=== PATIENT | male | born 1955 | race Caucasian/White ===

== ENCOUNTER 2016-03-23 09:46 | Emergency (ER) | payer OTHER ==
--- NOTE | 2016-03-23 10:16 | ERPHSYRPT ---
- History of Present Illness Time Seen by Provider: 03/23/16 10:07 Source: patient Exam Limitations: no limitations Patient Subjective Stated Complaint: dizziness and cough Triage Nursing Assessment: upper resp for days. had a loose stool this morning and had an episode during a bm where he got diaphoretic and dizziness and low bp. on arrival, pt states 'i feel back to normal' noted congestion and dry cough. denies pain or injury. had delsym for the first time last night and again this morning. Physician History: The patient is a 60-year-old male with his complaining of a cough for 5 days. He is been on a diet for 3 weeks has lost 10 pounds. Today at work he had a sudden onset of loose stools. He went home and during another bowel movement he became pale lightheaded and sweaty. Blood pressure at home was 90/ 50. He now feels fine. He would like to have an antibiotic for his cough. Timing/Duration: day(s) (5) Cough Quality/Degree: severe Possible Cause: no prior episodes Modifying Factors: Improves With: activity Associated Symptoms: cough, earache Allergies/Adverse Reactions: No Known Drug Allergies Allergy (Unverified 03/23/16 10:00) Home Medications: Aspirin 81 mg PO DAILY 03/23/16 [History] Enalapril Maleate 10 mg [Vasotec 10 MG] 10 mg PO DAILY 03/23/16 [History] Multivit-Min/FA/Lycopen/Lutein [Centrum Silver Men Tablet] 1 each PO DAILY 03/23 [History] [place]-3 Fatty Acids/Fish Oil [Fish Oil 1,000 mg Softgel] 1 each PO DAILY [History] Hx Tetanus, Diphtheria Vaccination/Date Given: Yes Hx Influenza Vaccination/Date Given: No Hx Pneumococcal Vaccination/Date Given: No Immunizations Up to Date: Yes - Review of Systems Constitutional: No Fever, No Chills Eyes: No Symptoms Ears, Nose, & Throat: Ear Pain, Nose Discharge Respiratory: Cough Cardiac: No Symptoms Abdominal/Gastrointestinal: Diarrhea Genitourinary Symptoms: No Dysuria Musculoskeletal: No Back Pain, No Neck Pain Skin: No Rash Neurological: No Dizziness, No Focal Weakness, No Sensory Changes Psychological: No Symptoms Endocrine: No Symptoms Hematologic/Lymphatic: No Symptoms Immunological/Allergic: No Symptoms All Other Systems: Reviewed and Negative - Past Medical History Pertinent Past Medical History: Yes Cardiac History: Hypertension Musculoskeletal History: No Pertinent History GI Medical History: No Pertinent History History: No Pertinent History Psycho-Social History: No Pertinent History Male Reproductive Disorders: No Pertinent History - Past Surgical History Past Surgical History: No - Social History Smoking Status: Never smoker Exposure to second hand smoke: No Drug Use: none Patient Lives Alone: No - Nursing Vital Signs Nursing Vital Signs: Initial Vital Signs Temperature 97.4 F Temperature Source Oral Pulse Rate 72 Respiratory Rate 18 Blood Pressure 106/68 Pain Intensity 0 - Physical Exam General Appearance: no apparent distress, alert Eye Exam: PERRL/EOMI, eyes nml inspection Ears, Nose, Throat Exam: normal ENT inspection, TMs normal, pharynx normal, moist mucous membranes Neck Exam: normal inspection, non-tender, supple, full range of motion Respiratory Exam: rhonchi Cardiovascular Exam: regular rate/rhythm, normal heart sounds Gastrointestinal/Abdomen Exam: soft, No tenderness Rectal Exam: not done Back Exam: normal inspection, No CVA tenderness, No vertebral tenderness Extremity Exam: normal inspection, normal range of motion Neurologic Exam: alert, oriented x 3, cooperative, normal mood/affect, sensation nml, No motor deficits Skin Exam: normal color, warm, dry, No rash Lymphatic Exam: No adenopathy SpO2 Interpretation: normal SpO2: 93 Oxygen Delivery: Room Air - Radiology Exams Chest X-ray Interpretation: Teleradiologist Report, Infiltrates (right base) Ordered Tests: Active Orders 24 hr Category Date Time Status Partner Integration Planner STAT Care 03/23/16 10:20 Active IV Insertion STAT Care 03/23/16 10:20 Active Orthostatic Vital Signs STAT Care 03/23/16 10:08 Active Regular Diet Diet 03/23/16 Dinner Active CHEST 2 VIEWS (PA AND LAT) Stat Exams 03/23/16 10:20 Completed BMP Stat Lab 03/23/16 10:30 Completed CBC W DIFF Stat Lab 03/23/16 10:30 Completed Manual Differential NC Stat Lab 03/23/16 10:30 Completed Medication Summary Discontinued Medications Generic Name Dose Route Start Last Admin Trade Name Freq PRN Reason Stop Dose Admin Ceftriaxone Sodium/Dextrose 50 mls @ 100 mls/hr 03/23/16 11:15 03/23/16 11:34 Rocephin 1 Gm-D5w 50 Ml Bag IV 03/23/16 11:44 100 mls/hr STAT ONE Administration Ceftriaxone Sodium/Dextrose Confirm 03/23/16 11:30 Rocephin 1 Gm-D5w 50 Ml Bag Administered 03/23/16 11:31 Dose 50 mls @ ud IV .STK-MED ONE Lab/Rad Data: Laboratory Result Diagrams 03/23/16 10:30 03/23/16 10:30 Laboratory Results 03/23/16 03/23/16 Range/Units 10:30 10:30 WBC 10.4 (4.0-10.5) K/mm3 RBC 5.18 (4.1-5.6) M/mm3 Hgb 16.3 (12.5-18.0) gm/dl Hct 49.9 (42-50) % MCV 96.3 (78-100) fl MCH 31.5 (26-32) pg MCHC 32.7 (32-36) g/dl RDW 13.0 (11.5-14.0) % Plt Count 239 (150-450) K/mm3 MPV 10.1 H (6-9.5) fl Segmented Neutrophils 83 H (36.-66.) % Lymphocytes (Manual) 10 L (24-44) % Monocytes (Manual) 5 (0.0-12.0) % Eosinophils (Manual) 2 (0.00-3.0) % Differential Comment NORMAL Platelet Estimate NORMAL (NORMAL) Sodium 139 (136-145) mEq/L Potassium 4.3 (3.5-5.1) mEq/L Chloride 102 (98-107) mEq/L Carbon Dioxide 32.0 (21-32) mEq/L Anion Gap 8.8 (5-15) MEQ/L BUN 13 (9-20) mg/dL Creatinine 0.95 (0.55-1.30) mg/dl Estimated GFR > 60 ML/MIN Glucose 151 H (70-110) MG/DL Calcium 9.3 (8.5-10.1) mg/dL - Progress Progress: unchanged Air Movement: good Blood Culture(s) Obtained: No Antibiotics given: Yes - Departure Time of Disposition: 12:28 Departure Disposition: Home Clinical Impression: Bronchitis, Infiltrate noted on imaging study Condition: Stable Critical Care Time: No Additional Instructions: Stay well hydrated. Tylenol and Ibuprofen as needed. Take the z davion as directed. Follow up as needed. Prescriptions: Azithromycin [Azithromycin 250 mg Pack] 250 mg PO UD #6 tablet
[2016-03-23 10:44] LABS: Mean Cell Volume 96.3 fl (78-100); Mean Corpuscular Hemoglobin 31.5 pg (26-32); Mean Platelet Volume 10.1 fl (6-9.5); Platelet Count 239 K/mm3 (150-450); Red Blood Count 5.18 M/mm3 (4.1-5.6); White Blood Count 10.4 K/mm3 (4.0-10.5)
--- NOTE | 2016-03-23 10:59 | XRAY ---
Indication: Cough. Comparison: October 07, 2006 PA/lateral chest now demonstrates subtle right base infiltrate versus atelectasis. No consolidation or large effusion. Left lung clear. Heart is not enlarged. Vascularity normal. Bony thorax intact. Impression: New right base infiltrate/atelectasis. Correlate clinically.
[2016-03-23 11:06] LABS: ANION GAP 8.8 MEQ/L (5-15); BLOOD UREA NITROGEN 13 mg/dL (9-20); CHLORIDE 102 mEq/L (98-107); Glucose 151 MG/DL (70-110); Potassium 4.3 mEq/L (3.5-5.1); SODIUM 139 mEq/L (136-145)
[2016-03-23] MEDS ORDERED: ROCEPHIN 1 Gm-D5w 50 ml Bag** 50 ML IV ONE ×2 (11:15→11:30)
[2016-03-23 11:38] LABS: Eosinophil 2 % (0.00-3.0); Platelet Estimate NORMAL (NORMAL); Total Cells Counted 100
[2016-03-23 12:40] VITALS: BP 112/60; PULSE 83; O2SAT 95
== END 2016-03-23 12:41 | disposition home or self-care (01) ==
LOC: ED 09:46
DX: J40 Bronchitis, not specified as acute or chronic (principal); R91.8 Other nonspecific abnormal finding of lung field; R42 Dizziness and giddiness; R05 Cough; H92.09 Otalgia, unspecified ear; I10 Essential (primary) hypertension; Z79.82 Long term (current) use of aspirin; Z79.899 Other long term (current) drug therapy
CPT/HCPCS: 36000; 36415; 71020; 80048; 85025; 93041; 96365; 99283; J0696

== ENCOUNTER 2023-07-03 17:18 | Emergency (ER) | payer MEDICARE ==
[2023-07-03 17:29] VITALS: TEMP 98
--- NOTE | 2023-07-03 17:33 | ERPHSYRPT ---
- History of Present Illness Time Seen by Provider: 07/03/23 17:33 Historian: patient Exam Limitations: no limitations Patient Subjective Stated Complaint: C/O chest pain that started while watching T.V. approx 30 minutes prior to coming into the ER Triage Nursing Assessment: Patient ambulated back to ER. He is alert and oriented. No SOB. Skin tone normal. DURAN WNL. Slight edema BLE. Physician History: This is a morbidly obese white male patient of Dr. Llamas who presents to the emergency department with mild (2 out of 10) intermittent, nonradiating substernal central chest pain that he described as an ache that occurred approximately 30 minutes prior to arrival while watching TV. Patient work today and came home and ate a sandwich and then ate chips. He noticed the above- stated symptoms. Although intermittent, the had not gone away and were noticeable and therefore he came to the emergency department for evaluation. Patient does have a history of asthma/COPD, hyperlipidemia, hypertension, morbid obesity and hypothyroidism. He has never been diagnosed with coronary artery disease. Timing/Duration: today Activities at Onset: none Quality: aching Location: substernal, central Chest Pain Radiation: no radiation Severity of Pain-Max: mild Severity of Pain-Current: mild Modifying Factors: Improves With: nothing Associated Symptoms: denies symptoms Prior Chest Pain/Cardiac Workup: no prior chest pain, no prior cardiac workup Nitro Today/Relief: no nitro taken today Aspirin Treatment Today: provided at home Allergies/Adverse Reactions: No Known Drug Allergies Allergy (Verified 07/03/23 17:21) Home Medications: Aspirin 81 mg PO DAILY 03/23/16 [History] Enalapril Maleate 10 mg [Vasotec 10 MG] 20 mg PO DAILY 03/23/16 [History] Mv-Min/Folic/K1/Lycopen/Lutein [Centrum Silver Men Tablet] 1 each PO DAILY 03/23/16 [History] [place]-3 Fatty Acids/Fish Oil [Fish Oil 1,000 mg Softgel] 1,000 mg PO DAILY 03/23/16 [History] Amlodipine Besylate 5 mg [Norvasc 5 mg] 5 mg PO HS 07/03/23 [History] Ascorbic Acid 500 mg [Vitamin C 500 MG] 1,000 mg PO DAILY 07/03/23 [History] Levocetirizine Dihydrochloride [Xyzal] 5 mg PO CLARIFY 07/03/23 [History] Montelukast Sodium 10 mg [Singulair 10 MG] 10 mg PO DAILY 07/03/23 [History] diphenhydrAMINE HCL [Allergy Relief] 25 mg PO DAILY 07/03/23 [History] Hx Tetanus, Diphtheria Vaccination/Date Given: Yes Hx Influenza Vaccination/Date Given: Yes Hx Pneumococcal Vaccination/Date Given: Yes Immunizations Up to Date: Yes Travel Risk - International Travel Have you traveled outside of the country in past 3 weeks: No - Emerging Infectious Disease Are you exhibiting symptoms associated with any current EIDs: No - Review of Systems Constitutional: No Symptoms Eyes: No Symptoms Ears, Nose, & Throat: No Symptoms Respiratory: No Symptoms Cardiac: Chest Pain Abdominal/Gastrointestinal: No Symptoms Genitourinary Symptoms: No Symptoms Musculoskeletal: No Symptoms Skin: No Symptoms Neurological: No Symptoms Psychological: No Symptoms Endocrine: No Symptoms Hematologic/Lymphatic: No Symptoms Immunological/Allergic: No Symptoms All Other Systems: Reviewed and Negative - Past Medical History Pertinent Past Medical History: Yes Cardiac History: Hypertension Musculoskeletal History: No Pertinent History GI Medical History: No Pertinent History History: No Pertinent History Psycho-Social History: No Pertinent History Male Reproductive Disorders: No Pertinent History - Past Surgical History Past Surgical History: Yes Other Surgical History: Sinus surgery - Social History Smoking Status: Never smoker Exposure to second hand smoke: No Drug Use: none Patient Lives Alone: No - Nursing Vital Signs Nursing Vital Signs: Initial Vital Signs Temperature 98 F 07/03/23 17:23 Pulse Rate 105 H 07/03/23 17:23 Respiratory Rate 19 07/03/23 17:23 Blood Pressure 164/111 07/03/23 17:23 O2 Sat by Pulse Oximetry 97 07/03/23 17:23 Pain Scale Pain Intensity 0 - Physical Exam General Appearance: no apparent distress, alert, anxiety, obese Eye Exam: PERRL/EOMI, eyes nml inspection Ears, Nose, Throat Exam: normal ENT inspection, moist mucous membranes Neck Exam: normal inspection, non-tender, supple, full range of motion Respiratory Exam: normal breath sounds, chest tenderness, lungs clear, airway intact, No respiratory distress Cardiovascular Exam: regular rate/rhythm, normal heart sounds, normal peripheral pulses Gastrointestinal/Abdomen Exam: soft, normal bowel sounds, No tenderness Rectal Exam: not done Back Exam: normal inspection, normal range of motion, No CVA tenderness, No vertebral tenderness Extremity Exam: normal inspection, normal range of motion, pelvis stable Neurologic Exam: alert, oriented x 3, cooperative, healthcare network consultant II-XII nml as tested, normal mood/affect, nml cerebellar function, nml station & gait, sensation nml Skin Exam: normal color, warm, dry Lymphatic Exam: No adenopathy SpO2 Interpretation: normal SpO2: 97 O2 Delivery: Room Air - Course Nursing assessment & vital signs reviewed: Yes Ordered Tests: Active Orders 24 hr Category Date Time Status Hot Braider STAT Care 07/03/23 17:34 Active EKG-ER Only STAT Care 07/03/23 17:33 Active IV Insertion STAT Care 07/03/23 17:33 Active Pulse Oximetry (ED) STAT Care 07/03/23 17:33 Active CHEST 1 VIEW (PORTABLE) Stat Exams 07/03/23 17:33 Taken CBC W DIFF Stat Lab 07/03/23 17:35 Completed CMP Stat Lab 07/03/23 17:35 Completed D-DIMER QUANTITATIVE Stat Lab 07/03/23 17:35 Completed NT PRO BNPII Stat Lab 07/03/23 17:35 Completed PROTIME WITH INR Stat Lab 07/03/23 17:35 Completed TROPONIN Q4H Lab 07/03/23 17:35 Completed TROPONIN Q4H Lab 07/03/23 20:00 Completed TROPONIN Q4H Lab 07/04/23 01:45 Ordered Medication Summary Discontinued Medications Generic Name Dose Route Start Last Admin Trade Name Freq PRN Reason Stop Dose Admin Aspirin 324 mg 07/03/23 17:33 07/03/23 17:52 Aspirin 81 Mg Tab.Chew PO 07/03/23 17:34 Not Given STAT ONE Enalaprilat 1.25 mg 07/03/23 18:46 07/03/23 19:05 Enalaprilat 2.5 Mg Injection IV 07/03/23 18:47 1.25 mg STAT ONE Administration Enalaprilat Confirm 07/03/23 18:59 Enalaprilat 2.5 Mg Injection Administered 07/03/23 19:00 Dose 2.5 mg IV .STK-MED ONE Labetalol HCl 10 mg 07/03/23 20:21 07/03/23 20:40 Labetalol Hcl 20 Mg/4 Ml Disp.Syringe IV 07/03/23 20:22 10 mg STAT ONE Administration Labetalol HCl Confirm 07/03/23 20:38 Labetalol Hcl 20 Mg/4 Ml Disp.Syringe Administered 07/03/23 20:39 Dose 20 mg IV .STK-MED ONE Morphine Sulfate 2 mg 07/03/23 18:46 07/03/23 19:08 Morphine Sulfate 2 Mg/Ml Inj IV 07/03/23 18:47 Not Given STAT ONE Morphine Sulfate Confirm 07/03/23 19:00 Morphine Sulfate 2 Mg/Ml Inj Administered 07/03/23 19:01 Dose 2 mg .ROUTE .STK-MED ONE Ondansetron HCl 4 mg 07/03/23 18:46 07/03/23 19:08 Ondansetron Hcl 4 Mg/2 Ml Vial IV 07/03/23 18:47 Not Given STAT ONE Ondansetron HCl Confirm 07/03/23 18:59 Ondansetron Hcl 4 Mg/2 Ml Vial Administered 07/03/23 19:00 Dose 4 mg .ROUTE .STK-MED ONE Lab/Rad Data: Laboratory Result Diagrams 07/03/23 17:35 07/03/23 17:35 Laboratory Results 07/03/23 07/03/23 07/03/23 Range/Units 20:00 17:35 17:35 WBC (4.0-10.5) x10^3/uL RBC (4.1-5.6) x10^6/uL Hgb (12.5-18.0) g/dL Hct (42-50) % MCV (78-100) fL MCH (26-32) pg MCHC (32-36) g/dL RDW (11.5-14.0) % Plt Count (150-450) x10^3/uL MPV (7.5-11.0) fL Gran % (36.0-66.0) % Immature Gran % (Auto) (0.00-0.4) % Nucleat RBC Rel Count (0.00-0.1) % Eos # (Auto) (0-0.5) x10^3/uL Immature Gran # (Auto) (0.00-0.03) x10^3u/L Absolute Lymphs (auto) (1.0-4.6) x10^3/uL Absolute Monos (auto) (0.0-1.3) x10^3/uL Absolute Nucleated RBC (0.00-0.01) x10^3u/L Lymphocytes % (24.0-44.0) % Monocytes % (0.0-12.0) % Eosinophils % (0.00-5.0) % Basophils % (0.0-0.4) % Absolute Granulocytes (1.4-6.9) x10^3/uL Basophils # (0-0.4) x10^3/uL PT (9.4-12.5) SECONDS INR (0.8-3.0) D-Dimer (0.0-0.50) mg/L Sodium (135-145) mmol/L Potassium (3.5-5.1) mmol/L Chloride (98-107) mmol/L Carbon Dioxide (22-30) mmol/L Anion Gap (5-15) MEQ/L BUN (9-20) mg/dL Creatinine (0.66-1.25) mg/dL Estimated GFR ML/MIN Glucose (74-106) mg/dL Calcium (8.4-10.2) mg/dL Total Bilirubin (0.2-1.3) mg/dL AST (17-59) U/L ALT (0-50) U/L Alkaline Phosphatase (38-126) U/L Troponin I 0.178 H* < 0.012 (0.000-0.033) ng/mL NT-Pro-B Natriuret Pep 1330 (<300) pg/mL Serum Total Protein (6.3-8.2) g/dL Albumin (3.5-5.0) g/dL 07/03/23 07/03/23 07/03/23 Range/Units 17:35 17:35 17:35 WBC 7.7 (4.0-10.5) x10^3/uL RBC 4.91 (4.1-5.6) x10^6/uL Hgb 15.6 (12.5-18.0) g/dL Hct 46.1 (42-50) % MCV 93.9 (78-100) fL MCH 31.8 (26-32) pg MCHC 33.8 (32-36) g/dL RDW 13.1 (11.5-14.0) % Plt Count 190 (150-450) x10^3/uL MPV 9.8 (7.5-11.0) fL Gran % 52.0 (36.0-66.0) % Immature Gran % (Auto) 0.4 (0.00-0.4) % Nucleat RBC Rel Count 0.0 (0.00-0.1) % Eos # (Auto) 0.41 (0-0.5) x10^3/uL Immature Gran # (Auto) 0.03 (0.00-0.03) x10^3u/L Absolute Lymphs (auto) 2.62 (1.0-4.6) x10^3/uL Absolute Monos (auto) 0.60 (0.0-1.3) x10^3/uL Absolute Nucleated RBC 0.00 (0.00-0.01) x10^3u/L Lymphocytes % 33.9 (24.0-44.0) % Monocytes % 7.8 (0.0-12.0) % Eosinophils % 5.3 H (0.00-5.0) % Basophils % 0.6 (0.0-0.4) % Absolute Granulocytes 4.03 (1.4-6.9) x10^3/uL Basophils # 0.05 (0-0.4) x10^3/uL PT 10.6 (9.4-12.5) SECONDS INR 0.97 (0.8-3.0) D-Dimer 0.39 (0.0-0.50) mg/L Sodium 140 (135-145) mmol/L Potassium 4.1 (3.5-5.1) mmol/L Chloride 102 (98-107) mmol/L Carbon Dioxide 31 H (22-30) mmol/L Anion Gap 10.9 (5-15) MEQ/L BUN 19 (9-20) mg/dL Creatinine 0.89 (0.66-1.25) mg/dL Estimated GFR 95.1 ML/MIN Glucose 168 H (74-106) mg/dL Calcium 9.7 (8.4-10.2) mg/dL Total Bilirubin 0.80 (0.2-1.3) mg/dL AST 33 (17-59) U/L ALT 29 (0-50) U/L Alkaline Phosphatase 61 (38-126) U/L Troponin I (0.000-0.033) ng/mL NT-Pro-B Natriuret Pep (<300) pg/mL Serum Total Protein 7.1 (6.3-8.2) g/dL Albumin 4.2 (3.5-5.0) g/dL - Progress Progress: improved, re-examined, unchanged Air Movement: good Progress Note: 07/03/23 19:06 My medical decision making and the assignment of moderate complexity to today's medical issue is based on review of the patient's past medical history, review of the patient's medication list, review the patient drug allergy list, history present illness and physical findings on examination. The workup includes placement of intravenous line, CBC, CMP, troponin level, D-dimer level, chest x- ray, twelve-lead EKG and BNP. Differential diagnosis includes muscle skeletal chest pain, myocardial infarction, pulmonary embolus, pneumonia, cardiac arrhythmia, hypertension, electrolyte abnormalities. 07/03/23 20:29 I interpreted the patient's laboratory data results. Based on the laboratory data results, there are no acute, emergent findings. I repeated a twelve-lead EKG on this patient approximately 2 and half to 3 hours after the initial twelve-lead EKG. It was performed on 07/03/2023 at 2018. The rate is 76 bpm. It is atrial fibrillation rhythm. There is right axis deviation. There is no evidence of any acute ischemia present. Interestingly, patient has no known history of atrial fibrillation. We are awaiting the repeat, 3-hour troponin level. If this is normal, and the patient symptoms have resolved, we will send the patient home with instructions for him to follow-up with his primary care provider tomorrow morning, 07/04/2023, to arrange a follow- up appointment with them as well as to arrange an outpatient appointment with a denture technician. 07/03/23 21:22 I interpreted the repeat troponin level which made a significant jump/increase to 0.178. His chest pain is resolved. However I feel the patient will be best served by transferring this patient now to facility that has cardiology on staff. His blood pressure is also elevated. We have provided him with enalapril IV as well as labetalol. I do not think that the form blood pressures that are being read are entirely accurate. Manual blood pressures are significantly lower but still the blood pressures are elevated. The patient agrees to be transferred to [facility]. I spoke with Kaylene at the transfer center and I provided information regarding this patient's medical history, presenting complaint, physical findings on examination, vital signs, workup results. She states that they will be able to auto accept this patient and the accepting physician is Dr. Hardik Tracy 07/03/23 21:25 I also interpreted the patient's chest x-ray. There is significant ove rpenetration in my opinion of the chest x-ray. There is a questionable right lower lobe atelectasis versus fluid versus early infiltrate. Blood Culture(s) Obtained: No Antibiotics given: No Counseled pt/family regarding: lab results, diagnosis, need for follow-up, rad results Medical Desision Making - Independent Historian Additional History obtained from: Spouse - Diagnostic Testing Diagnostic test were ordered, analyzed, and reviewed by me: Yes Radiological Interpretation: Interpreted by me - Risk of complications The pt has a high risk of morbidity or mortality based on: Decision regarding hospitilization or escalation of hosp level of care - Departure Departure Disposition: Transfer Clinical Impression: Chest pain, Atrial fibrillation, Hypertension, Elevated troponin Condition: Fair Critical Care Time: Yes Critical Care Time(excluding separately billable procedures): Critical 30-74 mins (45) Referrals: QUINTON LLAMAS MD [Primary Care Provider] - Follow up/PCP as directed
[2023-07-03 17:52] LABS: Absolute Neutrophil Ct (ANC) 4.03 x10^3/uL (1.4-6.9); BASOPHIL % 0.6 % (0.0-0.4); Basophil (Absolute #) 0.05 x10^3/uL (0-0.4); Eosinophil % 5.3 % (0.00-5.0); Eosinophil (Absolute #) 0.41 x10^3/uL (0-0.5); Hematocrit 46.1 % (42-50); Hemoglobin 15.6 g/dL (12.5-18.0); IMMATURE GRAN # 0.03 x10^3u/L (0.00-0.03); IMMATURE GRAN % 0.4 % (0.00-0.4); Lymphocyte (Absolute #) 2.62 x10^3/uL (1.0-4.6); Lymphocytes % 33.9 % (24.0-44.0); Mean Cell Volume 93.9 fL (78-100); Mean Corpuscular Hemoglobin 31.8 pg (26-32); Mean Corpuscular Hgb Concent. 33.8 g/dL (32-36); Mean Platelet Volume 9.8 fL (7.5-11.0); Monocytes % 7.8 % (0.0-12.0); Platelet Count 190 x10^3/uL (150-450); Red Blood Count 4.91 x10^6/uL (4.1-5.6); Red Cell Distribution Width 13.1 % (11.5-14.0); White Blood Count 7.7 x10^3/uL (4.0-10.5)
[2023-07-03] MEDS: BABY ASPIRIN 81 MG CHEW PO ONE (17:52)
[2023-07-03 17:58] LABS: ALBUMIN 4.2 g/dL (3.5-5.0); ANION GAP 10.9 MEQ/L (5-15); BILIRUBIN,TOTAL 0.8 mg/dL (0.2-1.3); Calcium 9.7 mg/dL (8.4-10.2); Creatinine 1 0.89 mg/dL (0.66-1.25); D-DIMER QUANTITATIVE 0.39 mg/L (0.0-0.50); EST GLOMERULAR FILTRATION RATE 95.1 ML/MIN; INR 0.97 (0.8-3.0); PROTIME 10.6 SECONDS (9.4-12.5); Potassium 4.1 mmol/L (3.5-5.1); Total Protein 7.1 g/dL (6.3-8.2)
[2023-07-03] MEDS ORDERED: ENALAPRILAT 2.5 MG INJECTION IV ONE (18:59)
[2023-07-03] MEDS ORDERED: Zofran 4 MG/2 ML VIAL ONE (18:59)
[2023-07-03] MEDS ORDERED: MORPHINE SULFATE 2 MG INJ ONE (19:00)
[2023-07-03] MEDS: ENALAPRILAT 2.5 MG INJECTION IV ONE (19:05)
[2023-07-03] MEDS: MORPHINE SULFATE 2 MG INJ IV ONE (19:08)
[2023-07-03] MEDS: Zofran 4 MG/2 ML VIAL IV ONE (19:08)
[2023-07-03] MEDS ORDERED: TRANDATE 20 MG/4 ML SYRINGE IV ONE (20:38)
[2023-07-03] MEDS: TRANDATE 20 MG/4 ML SYRINGE IV ONE (20:40)
[2023-07-03] MEDS ORDERED: ENOXAPARIN SODIUM SQ ONE (21:44)
[2023-07-03] MEDS: ENOXAPARIN SODIUM SQ SCH (21:46)
[2023-07-03 21:50] VITALS: BP 200/138; PULSE 85; RESP 23; O2SAT 96
--- NOTE | 2023-07-04 08:36 | XRAY ---
Indication: Chest pain. Comparison: March 23, 2016 Portable chest again demonstrates mild bibasilar infiltrates/atelectasis/effusions. Heart borderline enlarged. Bony thorax intact again with osteopenia and mild degenerative changes.
== END 2023-07-03 21:57 | disposition short-term general hospital (02) ==
LOC: ED 17:18
DX: R07.9 Chest pain, unspecified (principal); I48.91 Unspecified atrial fibrillation; I10 Essential (primary) hypertension; R77.8 Other specified abnormalities of plasma proteins; I16.0 Hypertensive urgency; E78.5 Hyperlipidemia, unspecified; Z79.899 Other long term (current) drug therapy
CPT/HCPCS: 36000; 36415; 71045; 80053; 83880; 84484; 85025; 85379; 85610; 93005; 93041; 94760; 96372; 96374; 96375; 99285; 99291; J1650; J2270; J2405

== ENCOUNTER 2024-05-13 06:24 | Emergency (ER) | payer MEDICARE ==
--- NOTE | 2024-05-13 07:28 | ERPHSYRPT ---
- History of Present Illness Time Seen by Provider: 05/13/24 07:10 Historian: patient, family Exam Limitations: no limitations Patient Subjective Stated Complaint: pt states he was woke with chest pain Triage Nursing Assessment: pt came into the er via wheelchair; pt transfer to cot per self; pt is axo x4; c/o chest pain; pt states 6/10 chest pain; clear, irregular heart tone; clear lung sounds in all lobes; strong xochitl radial pulses; strong xochitl pedal pulse; skin PDW; no respiratory distress present; vitals wnl Physician History: This is an obese 68-year-old white male patient of Dr. 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 Brown who presents to the emergency department by private vehicle with a complaint of intermittent, substernal, central, nonradiating chest ache. He arrives to the emergency department with complete resolution of his symptoms. However, he was concerned because it woke him out of his sleep this morning. Patient took his 2 baby aspirin but in addition took 2 full [place] aspirins prior to arrival. He states that he took all of his medicines this morning. Patient is on Xarelto. He has a history of atrial fibrillation, hypertension, hyperlipidemia and is on amiodarone for his atrial fibrillation. He has a history of coronary artery disease having had myocardial infarction in the past. He has no cardiac stents and he has not had a coronary artery bypass graft. Patient states he recently saw his limerock tower loader and he has an appointment to see an date puller on 05/27/2024 to discuss and arrange a cardiac ablation. Timing/Duration: day(s) (Several days), intermittent Activities at Onset: none Quality: aching Location: substernal, central Chest Pain Radiation: no radiation Severity of Pain-Max: mild (To moderate) Severity of Pain-Current: none Modifying Factors: Improves With: nothing Associated Symptoms: denies symptoms Prior Chest Pain/Cardiac Workup: heart attack Nitro Today/Relief: no nitro taken today Aspirin Treatment Today: 81 mg x 2, provided at home (In addition, he took 2 full [place] aspirins prior to arrival) Allergies/Adverse Reactions: No Known Drug Allergies Allergy (Verified 05/13/24 06:27) Home Medications: Aspirin 81 mg PO DAILY 03/23/16 [History] Enalapril Maleate 10 mg [Vasotec 10 MG] 20 mg PO DAILY 03/23/16 [History] Mv-Min/Folic/K1/Lycopen/Lutein [Centrum Silver Men Tablet] 1 each PO DAILY 03/23/16 [History] [place]-3 Fatty Acids/Fish Oil [Fish Oil 1,000 mg Softgel] 1,000 mg PO DAILY 03/23/16 [History] Levocetirizine Dihydrochloride [Xyzal] 5 mg PO CLARIFY 07/03/23 [History] Montelukast Sodium 10 mg [Singulair 10 MG] 10 mg PO DAILY 07/03/23 [History] Amiodarone HCl 200 mg PO DAILY 05/13/24 [History] Atorvastatin Calcium 80 mg PO DAILY 05/13/24 [History] Rivaroxaban [Xarelto] 10 mg PO DAILY 05/13/24 [History] Hx Tetanus, Diphtheria Vaccination/Date Given: Yes Hx Influenza Vaccination/Date Given: No Hx Pneumococcal Vaccination/Date Given: No Travel Risk - International Travel Have you traveled outside of the country in past 3 weeks: No - Emerging Infectious Disease Are you exhibiting symptoms associated with any current EIDs: No - Review of Systems Constitutional: No Symptoms Eyes: No Symptoms Ears, Nose, & Throat: No Symptoms Respiratory: No Symptoms Cardiac: Chest Pain (Now completely resolved) Abdominal/Gastrointestinal: No Symptoms Genitourinary Symptoms: No Symptoms Musculoskeletal: No Symptoms Skin: No Symptoms Neurological: No Symptoms Psychological: No Symptoms Endocrine: No Symptoms Hematologic/Lymphatic: No Symptoms Immunological/Allergic: No Symptoms All Other Systems: Reviewed and Negative - Past Medical History Pertinent Past Medical History: Yes Cardiac History: High Cholesterol, Hypertension, Myocardial Infarction ([place]) Musculoskeletal History: No Pertinent History GI Medical History: No Pertinent History History: No Pertinent History Psycho-Social History: No Pertinent History Male Reproductive Disorders: No Pertinent History - Past Surgical History Past Surgical History: Yes Other Surgical History: Sinus surgery - Social History Smoking Status: Smoker, status unknown Exposure to second hand smoke: No Drug Use: none - Social Determinants of Health Will the patient participate in the screening: Yes Do you worry about a steady place to live?: No Do you have any problems with any of the following?: No known problems In the past 12 months,have you had to go without utilities?: No Transportation Issues: No Has anyone in your support network made you feel unsafe?: No Have you or anyone in your house had to go w/o enough food: No - Nursing Vital Signs Nursing Vital Signs: Initial Vital Signs Temperature 96.8 F 05/13/24 06:31 Pulse Rate 74 05/13/24 06:31 Respiratory Rate 18 05/13/24 06:31 Blood Pressure 121/75 05/13/24 06:31 O2 Sat by Pulse Oximetry 99 05/13/24 06:31 Pain Scale Pain Intensity 0 - Physical Exam General Appearance: no apparent distress, alert, anxiety, obese Eye Exam: PERRL/EOMI, eyes nml inspection Ears, Nose, Throat Exam: normal ENT inspection, moist mucous membranes Neck Exam: normal inspection, non-tender, supple, full range of motion Respiratory Exam: normal breath sounds, lungs clear, airway intact, No chest tenderness, No respiratory distress Cardiovascular Exam: irregular Gastrointestinal/Abdomen Exam: soft, normal bowel sounds, No tenderness Rectal Exam: not done Back Exam: normal inspection, normal range of motion, No CVA tenderness, No vertebral tenderness Extremity Exam: normal inspection, normal range of motion, pelvis stable Neurologic Exam: alert, oriented x 3, cooperative, jewelry model maker II-XII nml as tested, normal mood/affect, nml cerebellar function, nml station & gait, sensation nml Skin Exam: normal color, warm, dry Lymphatic Exam: No adenopathy SpO2 Interpretation: normal SpO2: 100 O2 Delivery: Room Air - Course Nursing assessment & vital signs reviewed: Yes EKG Interpreted by Me: RATE (77), A-fib, Right [place] Deviation, NORMAL INTERVALS, NORMAL QRS, Other (No acute ischemia. QTc is 474) Ordered Tests: Active Orders 24 hr Category Date Time Status Talent Assistant STAT Care 05/13/24 07:29 Active EKG-ER Only STAT Care 05/13/24 07:28 Active IV Insertion STAT Care 05/13/24 07:28 Active CHEST 1 VIEW (PORTABLE) Stat Exams 05/13/24 07:29 Completed CBC W DIFF Stat Lab 05/13/24 06:41 Completed CMP Stat Lab 05/13/24 06:41 Completed MAGNESIUM Stat Lab 05/13/24 06:41 Completed NT PRO BNPII Stat Lab 05/13/24 06:41 Completed TROPONIN Q4H Lab 05/13/24 06:41 Completed TROPONIN Q4H Lab 05/13/24 11:30 Ordered TROPONIN Q4H Lab 05/13/24 15:30 Ordered Lab/Rad Data: Laboratory Result Diagrams 05/13/24 06:41 05/13/24 06:41 Laboratory Results 05/13/24 05/13/24 05/13/24 Range/Units 06:41 06:41 06:41 WBC 8.5 (4.23-9.07) x10^3/uL RBC 4.73 (4.63-6.08) x10^6/uL Hgb 14.8 (13.7-17.5) g/dL Hct 44.5 (40.1-51.0) % MCV 94.1 H (79.0-92.2) fL MCH 31.3 (25.7-32.2) pg MCHC 33.3 (32.3-36.5) g/dL RDW 13.9 (11.6-14.4) % Plt Count 212 (163-337) x10^3/uL MPV 10.1 (9.4-12.4) fL Gran % 49.6 (34.0-67.9) % Immature Gran % (Auto) 0.4 (0.001-0.429) % Nucleat RBC Rel Count 0.0 (0.00-0.2) % Eos # (Auto) 0.43 (0.04-0.54) x10^3/uL Immature Gran # (Auto) 0.03 (0.001-0.031) x10^3u/L Absolute Lymphs (auto) 3.11 (1.32-3.57) x10^3/uL Absolute Monos (auto) 0.69 (0.30-0.82) x10^3/uL Absolute Nucleated RBC 0.00 (0.00-0.012) x10^3u/L Lymphocytes % 36.4 (21.8-53.1) % Monocytes % 8.1 (5.3-12.2) % Eosinophils % 5.0 (0.8-7.0) % Basophils % 0.5 (0.2-1.2) % Absolute Granulocytes 4.24 (1.78-5.38) x10^3/uL Basophils # 0.04 (0.01-0.08) x10^3/uL Sodium 140 (135-145) mmol/L Potassium 4.6 (3.5-5.1) mmol/L Chloride 102 (98-107) mmol/L Carbon Dioxide 24 (22-30) mmol/L Anion Gap 18.6 H (5-15) MEQ/L BUN 30 H (9-20) mg/dL Creatinine 1.23 (0.66-1.25) mg/dL Estimated GFR 64.8 ML/MIN Glucose 110 H (74-106) mg/dL Calcium 9.6 (8.4-10.2) mg/dL Magnesium 2.2 (1.6-2.3) mg/dL Total Bilirubin 0.90 (0.2-1.3) mg/dL AST 56 (17-59) U/L ALT 63 H (0-50) U/L Alkaline Phosphatase 64 (38-126) U/L Troponin I 0.204 H* (0.000-0.033) ng/mL NT-Pro-B Natriuret Pep 1880 (<300) pg/mL Serum Total Protein 7.5 (6.3-8.2) g/dL Albumin 4.7 (3.5-5.0) g/dL - Progress Progress: improved, re-examined Air Movement: good Progress Note: 05/13/24 07:50 My medical decision making of the assignment of moderate complexity to this patient's medical history today is based on review the patient's past medical history, review of the patient's medication list, review patient drug allergy list, history of present illness and physical findings on examination. The workup in this patient includes placement of intravenous line, twelve-lead EKG, chest x-ray, magnesium, CBC, CMP, BNP, troponin level. Differential diagnosis includes but is not limited to muscle skeletal pain, anxiety, myocardial infarction, arrhythmia, electrolyte abnormalities, CHF, upper respiratory infection 05/13/24 08:30 I interpreted the patient's laboratory data results. Based on the laboratory da ta results, the patient does have an elevated troponin level. I interpreted the preliminary chest x-ray results. There is cardiomegaly present. There is also some haziness in the right lung base. Unsure if this is atelectasis technique/overpenetration 05/13/24 08:31 05/13/24 08:47 I spoke with Emily at the transfer center [facility] and had her [place]. This patient is auto accepted. The accepting physician is Dr. Mk Farias Blood Culture(s) Obtained: No Antibiotics given: No Counseled pt/family regarding: lab results, diagnosis, need for follow-up, rad results Medical Desision Making - Independent Historian Additional History obtained from: Spouse (Who was in the car during this evaluation but we communicated through the patient's cell phone) - Discussion of managment Reviewed:: Test results, Need for additional workup - Diagnostic Testing Diagnostic test were ordered, analyzed, and reviewed by me: Yes Radiological Interpretation: Interpreted by me, Teleradiologist Report - Risk of complications The pt has a high risk of morbidity or mortality based on: Decision regarding hospitilization or escalation of hosp level of care - Departure Departure Disposition: Transfer Clinical Impression: Non-STEMI (non-ST elevated myocardial infarction), Chest pain Condition: Stable Critical Care Time: No Referrals: QUINTON LLAMAS MD [Primary Care Provider] - Follow up/PCP as directed
[2024-05-13 07:36] LABS: Absolute Neutrophil Ct (ANC) 4.24 x10^3/uL (1.78-5.38); BASOPHIL % 0.5 % (0.2-1.2); Basophil (Absolute #) 0.04 x10^3/uL (0.01-0.08); Eosinophil (Absolute #) 0.43 x10^3/uL (0.04-0.54); Hematocrit 44.5 % (40.1-51.0); Hemoglobin 14.8 g/dL (13.7-17.5); IMMATURE GRAN # 0.03 x10^3u/L (0.001-0.031); IMMATURE GRAN % 0.4 % (0.001-0.429); Lymphocyte (Absolute #) 3.11 x10^3/uL (1.32-3.57); Lymphocytes % 36.4 % (21.8-53.1); Mean Cell Volume 94.1 fL (79.0-92.2); Mean Corpuscular Hemoglobin 31.3 pg (25.7-32.2); Mean Corpuscular Hgb Concent. 33.3 g/dL (32.3-36.5); Mean Platelet Volume 10.1 fL (9.4-12.4); Monocyte (Absolute #) 0.69 x10^3/uL (0.30-0.82); Monocytes % 8.1 % (5.3-12.2); Neutrophil % 49.6 % (34.0-67.9); Platelet Count 212 x10^3/uL (163-337); Red Blood Count 4.73 x10^6/uL (4.63-6.08); Red Cell Distribution Width 13.9 % (11.6-14.4); White Blood Count 8.5 x10^3/uL (4.23-9.07)
[2024-05-13 08:00] LABS: ALBUMIN 4.7 g/dL (3.5-5.0); ANION GAP 18.6 MEQ/L (5-15); BILIRUBIN,TOTAL 0.9 mg/dL (0.2-1.3); Calcium 9.6 mg/dL (8.4-10.2); Creatinine 1 1.23 mg/dL (0.66-1.25); EST GLOMERULAR FILTRATION RATE 64.8 ML/MIN; MAGNESIUM 2.2 mg/dL (1.6-2.3); Potassium 4.6 mmol/L (3.5-5.1); Total Protein 7.5 g/dL (6.3-8.2)
--- NOTE | 2024-05-13 08:47 | XRAY ---
Indication: Chest pain. Comparison: July 03, 2023 Portable apical lordotic chest unchanged again demonstrating mild right base infiltrate/atelectasis and borderline cardiomegaly. Bony thorax intact again with osteopenia and degenerative changes. No new abnormalities.
[2024-05-13 08:53] VITALS: TEMP 97
[2024-05-13 09:43] VITALS: RESP 20
[2024-05-13 11:50] VITALS: BP 126/79; PULSE 67; O2SAT 98
== END 2024-05-13 12:24 | disposition short-term general hospital (02) ==
LOC: ED 06:24
DX: I21.4 Non-ST elevation (NSTEMI) myocardial infarction (principal); R07.9 Chest pain, unspecified; I10 Essential (primary) hypertension; E78.5 Hyperlipidemia, unspecified; Z79.01 Long term (current) use of anticoagulants; Z79.899 Other long term (current) drug therapy
CPT/HCPCS: 36415; 71045; 80053; 83735; 83880; 84484; 85025; 93005; 93041; 99285